=== PATIENT | female | born 1945 | race Caucasian/White ===

== ENCOUNTER 2019-04-26 06:36 | Observation (INO) ==
[2019-04-26] MEDS ORDERED: cefTRIAXone 2,000 MG in Water for inj. (sterile) 10 ML IVP ONE (06:47)
[2019-04-26] MEDS ORDERED: Azithromycin 500 MG in 0.9 % Sodium Chloride 250 ML IVPB ONE (06:47)
[2019-04-26] MEDS ORDERED: Ipratropium/Albuterol Neb 3 ML IH ONE (06:47)
[2019-04-26 07:12] LABS: Basophils % 0.4 %; Eosinophils # 0.2 K/mcL (0.0-0.6); Eosinophils % 2.1 %; Hematocrit 33.9 % (35.3-44.9); Hemoglobin 10.3 g/dL (11.5-15.4); Immature Granulocytes % 0.4 % (0-4); Lymphocytes # 0.8 K/mcL (0.6-4.6); Lymphocytes % 7.7 %; Mean Corpuscular HGB Conc 30.4 g/dL (31.6-35.5); Mean Corpuscular Hemoglobin 23.5 pg (28.0-33.3); Mean Corpuscular Volume 77.4 fL (83.0-100.0); Mean Platelet Volume 9.2 fL (9.4-12.4); Monocytes # 0.8 K/mcL (0.0-1.3); Monocytes % 7.7 %; Neutrophils # 8.7 K/mcL (1.6-8.9); Platelet Count 221 K/mcL (140-400); Red Blood Count 4.38 M/mcL (3.82-4.97); Red Cell Distribution Width 15.4 % (11.5-14.5); Segmented Neutrophils % 81.7 %; White Blood Count 10.7 K/mcL (4.3-11.1)
[2019-04-26 07:30] LABS: INR 1.2; Prothrombin Time 13.2 Seconds (9.4-12.1)
[2019-04-26 07:40] LABS: BUN/Creatinine Ratio 12 (6-26); Blood Urea Nitrogen 8 mg/dL (8-23); Calcium 8.8 mg/dL (8.6-10.3); Carbon Dioxide 28 mEq/L (23-29); Chloride 104 mEq/L (98-107); Glucose 155 mg/dL (70-105); Osmolality,Calculated 291 (280-300); Potassium 3.8 mEq/L (3.5-5.1); Sodium 140 mEq/L (136-145); eGFR For African Americans > 60 (> 60); eGFR For Non-African Americans > 60 (> 60)
[2019-04-26 07:41] LABS: Troponin I 0.03 ng/mL (< 0.04)
[2019-04-26] MEDS ORDERED: Furosemide 40 MG/4 ML VIAL IVP ONE (07:47)
[2019-04-26] MEDS ORDERED: Mag Hydrox/Al Hydrox/Simeth 30 ML UDC PO PRN (09:00)
[2019-04-26] MEDS ORDERED: Naloxone 0.4 MG/ML INJ IVP PRN (09:00)
[2019-04-26] MEDS ORDERED: methIMAzole 5 MG TABLET PO SCH (09:00)
[2019-04-26] MEDS ORDERED: Ondansetron ODT 4 MG TAB.RAPDIS SL PRN (09:00)
[2019-04-26] MEDS ORDERED: *HR* Dextrose 50 % in Water (Vial) 50 ML VIAL IVP PRN (09:02)
[2019-04-26] MEDS ORDERED: Dextrose Gel 15 GM/37.5 ML TUBE PO PRN ×2 (09:02)
[2019-04-26] MEDS ORDERED: D5% in Water 1,000 ML IVC PRN (09:02)
[2019-04-26] MEDS ORDERED: Ipratropium/Albuterol Neb 3 ML IH PRN (09:05)
[2019-04-26 10:20] LABS: Thyroid Stimulating Hormone 1.149 mcIU/mL (0.340-5.600)
[2019-04-26] MEDS: Pregabalin 75 MG CAPSULE PO SCH ×2 (10:40→20:06)
[2019-04-26] MEDS: FLUoxetine 20 MG CAPSULE PO SCH (10:40)
[2019-04-26] MEDS: Ascorbic Acid 500 MG TABLET PO SCH (10:41)
[2019-04-26] MEDS: Furosemide 20 MG/2 ML VIAL IVP SCH (10:45)
[2019-04-26] MEDS: carvediloL 6.25 MG TABLET PO SCH ×2 (10:48→17:58)
[2019-04-26] MEDS: Insulin LISPRO 300 UNITS/3 ML VIAL SQ SCH ×3 (12:41→20:01)
[2019-04-26 13:54] LABS: Estimated Average Glucose 117 mg/dl
[2019-04-26] MEDS: traZODone 50 MG TABLET PO SCH (20:06)
[2019-04-27 05:32] LABS: Hemoglobin 9.4 g/dL (11.5-15.4); Mean Corpuscular HGB Conc 30.3 g/dL (31.6-35.5); Mean Corpuscular Hemoglobin 23.6 pg (28.0-33.3); Mean Corpuscular Volume 77.9 fL (83.0-100.0); Mean Platelet Volume 9.5 fL (9.4-12.4); Platelet Count 212 K/mcL (140-400); Red Blood Count 3.98 M/mcL (3.82-4.97); Red Cell Distribution Width 15.3 % (11.5-14.5)
[2019-04-27 05:52] LABS: BUN/Creatinine Ratio 10 (6-26); Blood Urea Nitrogen 7 mg/dL (8-23); Calcium 8.5 mg/dL (8.6-10.3); Carbon Dioxide 34 mEq/L (23-29); Chloride 104 mEq/L (98-107); Glucose 107 mg/dL (70-105); Osmolality,Calculated 294 (280-300); Potassium 3.7 mEq/L (3.5-5.1); Sodium 143 mEq/L (136-145); eGFR For African Americans > 60 (> 60); eGFR For Non-African Americans > 60 (> 60)
[2019-04-27] MEDS: *HR* Enoxaparin 40 MG/0.4 ML SYRINGE SQ SCH (05:57)
[2019-04-27] MEDS: cefTRIAXone 2,000 MG in Water for inj. (sterile) 20 ML IVPB SCH (06:04)
[2019-04-27] MEDS: Azithromycin 500 MG in 0.9 % Sodium Chloride 250 ML IVPB SCH (06:04)
[2019-04-27] MEDS: carvediloL 6.25 MG TABLET PO SCH ×2 (08:48→17:06)
[2019-04-27] MEDS: Pregabalin 75 MG CAPSULE PO SCH ×2 (08:48→20:30)
[2019-04-27] MEDS: FLUoxetine 20 MG CAPSULE PO SCH (08:49)
[2019-04-27] MEDS: Furosemide 20 MG/2 ML VIAL IVP SCH (08:49)
[2019-04-27] MEDS: Ascorbic Acid 500 MG TABLET PO SCH (08:49)
[2019-04-27] MEDS: Insulin LISPRO 300 UNITS/3 ML VIAL SQ SCH ×4 (09:28→20:28)
[2019-04-27 09:59] LABS: Bilirubin,Urine Negative (Negative); Blood,Urine Negative (Negative); Clarity,Urine Clear (Clear); Color,Urine Yellow (Yellow); Glucose,Urine (UA) Normal (Normal); Ketones,Urine Negative (Negative); Leukocyte Esterase,Urine Negative (Negative); Nitrite,Urine Negative (Negative); Protein,Urine Negative (Neg-Trace); Urobilinogen,Urine Normal (Normal)
[2019-04-27 12:10] LABS: Adenovirus Not Detected (Not Detect); Bordetella Pertussis Not Detected (Not Detect); Chlamydophila pneumoniae Not Detected (Not Detect); Coronavirus 229E Not Detected (Not Detect); Coronavirus HKU1 Not Detected (Not Detect); Coronavirus NL63 Not Detected (Not Detect); Coronavirus OC43 Not Detected (Not Detect); Human Metapneumovirus Not Detected (Not Detect); Human Rhinovirus/Enterovirus Not Detected (Not Detect); Influenza A Subtype 2009 H1 Not Detected (Not Detect); Influenza B Not Detected (Not Detect); Mycoplasma pneumoniae Not Detected (Not Detect); Parainfluenza Virus 1 Not Detected (Not Detect); Parainfluenza Virus 2 Not Detected (Not Detect); Parainfluenza Virus 3 Not Detected (Not Detect); Parainfluenza Virus 4 Not Detected (Not Detect); Respiratory Syncytial Virus Not Detected (Not Detect)
[2019-04-27] MEDS: MethylPREDNISolone 40 MG/ML VIAL IVP SCH (17:06)
[2019-04-27] MEDS: traZODone 50 MG TABLET PO SCH (20:31)
[2019-04-28] MEDS: MethylPREDNISolone 40 MG/ML VIAL IVP SCH ×2 (00:08→08:48)
[2019-04-28] MEDS: cefTRIAXone 2,000 MG in Water for inj. (sterile) 20 ML IVPB SCH (06:09)
[2019-04-28] MEDS: *HR* Enoxaparin 40 MG/0.4 ML SYRINGE SQ SCH (06:10)
[2019-04-28] MEDS: Azithromycin 500 MG in 0.9 % Sodium Chloride 250 ML IVPB SCH (06:11)
[2019-04-28 06:47] LABS: Hematocrit 34.2 % (35.3-44.9); Hemoglobin 10.3 g/dL (11.5-15.4); Mean Corpuscular HGB Conc 30.1 g/dL (31.6-35.5); Mean Corpuscular Hemoglobin 23.7 pg (28.0-33.3); Mean Corpuscular Volume 78.6 fL (83.0-100.0); Mean Platelet Volume 9.7 fL (9.4-12.4); Platelet Count 216 K/mcL (140-400); Red Blood Count 4.35 M/mcL (3.82-4.97); White Blood Count 3.3 K/mcL (4.3-11.1)
[2019-04-28 07:11] LABS: BUN/Creatinine Ratio 14 (6-26); Blood Urea Nitrogen 9 mg/dL (8-23); Calcium 8.9 mg/dL (8.6-10.3); Carbon Dioxide 32 mEq/L (23-29); Chloride 102 mEq/L (98-107); Glucose 165 mg/dL (70-105); Osmolality,Calculated 294 (280-300); Potassium 3.8 mEq/L (3.5-5.1); Sodium 141 mEq/L (136-145); eGFR For African Americans > 60 (> 60); eGFR For Non-African Americans > 60 (> 60)
[2019-04-28] MEDS ORDERED: Menthol 9.1 MG LOZENGE PO PRN (07:29)
[2019-04-28 07:55] VITALS: BP 173/78
[2019-04-28] MEDS: carvediloL 6.25 MG TABLET PO SCH (08:47)
[2019-04-28] MEDS: Pregabalin 75 MG CAPSULE PO SCH (08:47)
[2019-04-28] MEDS: FLUoxetine 20 MG CAPSULE PO SCH (08:47)
[2019-04-28] MEDS: Furosemide 20 MG/2 ML VIAL IVP SCH (08:48)
[2019-04-28] MEDS: Ascorbic Acid 500 MG TABLET PO SCH (08:48)
[2019-04-28] MEDS: Insulin LISPRO 300 UNITS/3 ML VIAL SQ SCH ×2 (08:48→12:14)
[2019-04-29] MEDS ORDERED: Lisinopril 20 MG TABLET PO SCH (09:00)
== END 2019-04-28 15:11 | disposition home health service (06) ==
LOC: INPPIK 06:36 → EMEROOPIK 06:36 → INPPIK 09:25
PROVIDERS: ADMIT Family Medicine; ATTEND Family Medicine

== ENCOUNTER 2020-10-13 10:44 | Observation (INO) ==
[2020-10-13 11:09] LABS: Basophils % 0.3 %; Eosinophils # 0.1 K/mcL (0.0-0.6); Eosinophils % 0.8 %; Hematocrit 39.7 % (35.3-44.9); Hemoglobin 12.1 g/dL (11.5-15.4); Immature Granulocytes % 0.2 % (0-4); Lymphocytes # 0.6 K/mcL (0.6-4.6); Lymphocytes % 6.8 %; Mean Corpuscular HGB Conc 30.5 g/dL (31.6-35.5); Mean Corpuscular Hemoglobin 24.2 pg (28.0-33.3); Mean Corpuscular Volume 79.2 fL (83.0-100.0); Mean Platelet Volume 9.7 fL (9.4-12.4); Monocytes # 0.7 K/mcL (0.0-1.3); Monocytes % 8.2 %; Neutrophils # 7.3 K/mcL (1.6-8.9); Platelet Count 254 K/mcL (140-400); Red Blood Count 5.01 M/mcL (3.82-4.97); Red Cell Distribution Width 19.7 % (11.5-14.5); Segmented Neutrophils % 83.7 %; White Blood Count 8.7 K/mcL (4.3-11.1)
[2020-10-13 11:16] LABS: INR 1.3; Prothrombin Time 14.4 Seconds (9.4-12.1)
[2020-10-13 11:28] LABS: Alanine Aminotransferase 11 Units/L (7-52); Albumin 3.2 g/dL (3.5-5.7); Alkaline Phosphatase 101 Units/L (34-104); Aspartate Amino Transferase 16 Units/L (13-39); BUN/Creatinine Ratio 15 (6-26); Bilirubin,Total 0.9 mg/dL (0.3-1.0); Blood Urea Nitrogen 10 mg/dL (8-23); Calcium 8.7 mg/dL (8.6-10.3); Carbon Dioxide 33 mEq/L (23-29); Chloride 101 mEq/L (98-107); Globulin 3.2 g/dL (2.4-3.5); Glucose 96 mg/dL (70-105); Osmolality,Calculated 291 (280-300); Potassium 3.1 mEq/L (3.5-5.1); Sodium 141 mEq/L (136-145); Total Protein 6.4 g/dL (6.4-8.9); eGFR For African Americans > 60 (> 60); eGFR For Non-African Americans > 60 (> 60)
[2020-10-13 11:58] LABS: Bilirubin,Urine Negative (Negative); Blood,Urine Negative (Negative); Clarity,Urine Clear (Clear); Color,Urine Yellow (Yellow); Glucose,Urine (UA) Normal (Normal); Ketones,Urine Negative (Negative); Leukocyte Esterase,Urine Negative (Negative); Nitrite,Urine Negative (Negative); Protein,Urine Negative (Neg-Trace); Specific Gravity,Urine 1.015 (1.010-1.025); Urobilinogen,Urine Normal (Normal)
[2020-10-13] MEDS ORDERED: Ondansetron ODT 4 MG TAB.RAPDIS SL PRN (12:18)
[2020-10-13] MEDS ORDERED: *HR* HYDROcodone/Acet 5/325 mg TABLET PO PRN (12:18)
[2020-10-13] MEDS ORDERED: Acetaminophen 325 MG TABLET PO PRN (12:18)
[2020-10-13] MEDS ORDERED: Dextrose Gel 15 GM/37.5 ML TUBE PO PRN ×2 (12:21)
[2020-10-13] MEDS ORDERED: D5% in Water 1,000 ML IVC PRN (12:21)
[2020-10-13] MEDS ORDERED: *HR* Dextrose 50 % in Water (Vial) 50 ML VIAL IVP PRN (12:21)
[2020-10-13] MEDS: Insulin LISPRO 300 UNITS/3 ML VIAL SUBQ SCH ×2 (16:47→21:12)
[2020-10-13] MEDS: *HR* Metformin 500 MG TABLET PO SCH (17:59)
[2020-10-13] MEDS: clonazePAM 0.5 MG TABLET PO SCH (21:12)
[2020-10-13] MEDS: Pregabalin 75 MG CAPSULE PO SCH (21:12)
[2020-10-13] MEDS: traZODone 50 MG TABLET PO SCH (21:13)
[2020-10-14 07:10] LABS: Hematocrit 33.6 % (35.3-44.9); Hemoglobin 10.2 g/dL (11.5-15.4); Mean Corpuscular HGB Conc 30.4 g/dL (31.6-35.5); Mean Corpuscular Hemoglobin 23.8 pg (28.0-33.3); Mean Corpuscular Volume 78.5 fL (83.0-100.0); Mean Platelet Volume 10.2 fL (9.4-12.4); Platelet Count 254 K/mcL (140-400); Red Blood Count 4.28 M/mcL (3.82-4.97); Red Cell Distribution Width 19.4 % (11.5-14.5); White Blood Count 8.3 K/mcL (4.3-11.1)
[2020-10-14 07:26] LABS: BUN/Creatinine Ratio 16 (6-26); Blood Urea Nitrogen 10 mg/dL (8-23); Calcium 8.2 mg/dL (8.6-10.3); Carbon Dioxide 32 mEq/L (23-29); Chloride 104 mEq/L (98-107); Glucose 105 mg/dL (70-105); Osmolality,Calculated 293 (280-300); Potassium 3.7 mEq/L (3.5-5.1); Sodium 142 mEq/L (136-145); eGFR For African Americans > 60 (> 60); eGFR For Non-African Americans > 60 (> 60)
[2020-10-14] MEDS: Insulin LISPRO 300 UNITS/3 ML VIAL SUBQ SCH ×4 (10:02→20:02)
[2020-10-14] MEDS: Pregabalin 75 MG CAPSULE PO SCH ×2 (10:04→19:52)
[2020-10-14] MEDS: *HR* Metformin 500 MG TABLET PO SCH ×2 (10:04→17:12)
[2020-10-14] MEDS: lisinopriL 20 MG TABLET PO SCH (10:04)
[2020-10-14] MEDS: clonazePAM 0.5 MG TABLET PO SCH ×2 (10:04→19:52)
[2020-10-14] MEDS: BuPROPion SR (12 HR) 150 MG TABLET PO SCH (10:04)
[2020-10-14] MEDS: traZODone 50 MG TABLET PO SCH (19:52)
[2020-10-15] MEDS: Insulin LISPRO 300 UNITS/3 ML VIAL SUBQ SCH ×4 (08:34→20:43)
[2020-10-15] MEDS: clonazePAM 0.5 MG TABLET PO SCH ×2 (08:39→20:42)
[2020-10-15] MEDS: Pregabalin 75 MG CAPSULE PO SCH (08:39)
[2020-10-15] MEDS: BuPROPion SR (12 HR) 150 MG TABLET PO SCH (08:39)
[2020-10-15] MEDS: lisinopriL 20 MG TABLET PO SCH (08:40)
[2020-10-15] MEDS: *HR* Metformin 500 MG TABLET PO SCH ×2 (08:40→16:57)
[2020-10-15 09:20] LABS: Basophils % 0.4 %; Eosinophils # 0.1 K/mcL (0.0-0.6); Hematocrit 36.4 % (35.3-44.9); Hemoglobin 11.1 g/dL (11.5-15.4); Immature Granulocytes % 0.4 % (0-4); Lymphocytes # 0.8 K/mcL (0.6-4.6); Lymphocytes % 8.1 %; Mean Corpuscular HGB Conc 30.5 g/dL (31.6-35.5); Mean Corpuscular Hemoglobin 24.3 pg (28.0-33.3); Mean Corpuscular Volume 79.6 fL (83.0-100.0); Mean Platelet Volume 10.1 fL (9.4-12.4); Monocytes # 0.8 K/mcL (0.0-1.3); Monocytes % 8.8 %; Neutrophils # 7.7 K/mcL (1.6-8.9); Platelet Count 283 K/mcL (140-400); Red Blood Count 4.57 M/mcL (3.82-4.97); Red Cell Distribution Width 19.4 % (11.5-14.5); Segmented Neutrophils % 81.3 %; White Blood Count 9.4 K/mcL (4.3-11.1)
[2020-10-15 09:34] LABS: BUN/Creatinine Ratio 18 (6-26); Blood Urea Nitrogen 12 mg/dL (8-23); Calcium 8.5 mg/dL (8.6-10.3); Carbon Dioxide 31 mEq/L (23-29); Chloride 102 mEq/L (98-107); Glucose 130 mg/dL (70-105); Osmolality,Calculated 288 (280-300); Potassium 4.4 mEq/L (3.5-5.1); Sodium 138 mEq/L (136-145); eGFR For African Americans > 60 (> 60); eGFR For Non-African Americans > 60 (> 60)
[2020-10-15] MEDS: traZODone 50 MG TABLET PO SCH (20:42)
[2020-10-15] MEDS: Pregabalin 50 MG CAPSULE PO SCH (20:43)
[2020-10-16 06:59] LABS: Basophils # 0.1 K/mcL (0.0-0.2); Basophils % 0.5 %; Eosinophils # 0.1 K/mcL (0.0-0.6); Eosinophils % 0.6 %; Hematocrit 36.9 % (35.3-44.9); Immature Granulocytes % 0.4 % (0-4); Lymphocytes # 0.8 K/mcL (0.6-4.6); Lymphocytes % 7.3 %; Mean Corpuscular HGB Conc 29.8 g/dL (31.6-35.5); Mean Corpuscular Hemoglobin 23.8 pg (28.0-33.3); Mean Corpuscular Volume 79.7 fL (83.0-100.0); Mean Platelet Volume 10.1 fL (9.4-12.4); Monocytes # 0.9 K/mcL (0.0-1.3); Monocytes % 8.9 %; Neutrophils # 8.5 K/mcL (1.6-8.9); Platelet Count 319 K/mcL (140-400); Red Blood Count 4.63 M/mcL (3.82-4.97); Red Cell Distribution Width 19.3 % (11.5-14.5); Segmented Neutrophils % 82.3 %; White Blood Count 10.3 K/mcL (4.3-11.1)
[2020-10-16 07:23] LABS: BUN/Creatinine Ratio 25 (6-26); Blood Urea Nitrogen 16 mg/dL (8-23); Calcium 8.7 mg/dL (8.6-10.3); Carbon Dioxide 29 mEq/L (23-29); Chloride 102 mEq/L (98-107); Glucose 61 mg/dL (70-105); Osmolality,Calculated 287 (280-300); Potassium 4.6 mEq/L (3.5-5.1); Sodium 139 mEq/L (136-145); eGFR For African Americans > 60 (> 60); eGFR For Non-African Americans > 60 (> 60)
[2020-10-16] MEDS: Insulin LISPRO 300 UNITS/3 ML VIAL SUBQ SCH (07:42)
[2020-10-16 07:50] VITALS: BP 145/79; PULSE 101; RESP 16; TEMP 98; O2SAT 93
[2020-10-16] MEDS: Pregabalin 50 MG CAPSULE PO SCH (08:20)
[2020-10-16] MEDS: BuPROPion SR (12 HR) 150 MG TABLET PO SCH (08:21)
[2020-10-16] MEDS: clonazePAM 0.5 MG TABLET PO SCH (08:21)
[2020-10-16] MEDS: *HR* Metformin 500 MG TABLET PO SCH (08:21)
[2020-10-16] MEDS: lisinopriL 20 MG TABLET PO SCH (08:21)
== END 2020-10-16 10:17 | disposition other institution (70) ==
LOC: EMEROOPIK 10:44 → INPPIK 10:44
PROVIDERS: ADMIT Family Medicine; ATTEND Family Medicine

== ENCOUNTER 2020-10-15 10:05 | Inpatient (IN) ==
[2020-10-16] MEDS ORDERED: Ondansetron ODT 4 MG TAB.RAPDIS SL PRN (08:40)
[2020-10-16] MEDS ORDERED: Acetaminophen 325 MG TABLET PO PRN (08:40)
[2020-10-16] MEDS ORDERED: BuPROPion SR (12 HR) 150 MG TABLET PO SCH (09:00)
[2020-10-16] MEDS ORDERED: Dextrose Gel 15 GM/37.5 ML TUBE PO PRN ×2 (10:09)
[2020-10-16] MEDS ORDERED: D5% in Water 1,000 ML IVC PRN (10:09)
[2020-10-16] MEDS ORDERED: *HR* Dextrose 50 % in Water (Vial) 50 ML VIAL IVP PRN (10:09)
[2020-10-16] MEDS ORDERED: Insulin LISPRO 300 UNITS/3 ML VIAL SUBQ SCH ×2 (12:00→21:00)
[2020-10-16] MEDS: *HR* Metformin 500 MG TABLET PO SCH (16:39)
[2020-10-16] MEDS ORDERED: Insulin DETEMIR 100 UNIT/ML X5UNITS SUBQ SCH (21:00)
[2020-10-16] MEDS ORDERED: traZODone 50 MG TABLET PO SCH (21:00)
[2020-10-16] MEDS: Pregabalin 50 MG CAPSULE PO SCH (21:40)
[2020-10-16] MEDS: clonazePAM 0.5 MG TABLET PO SCH (21:40)
[2020-10-17] MEDS: lisinopriL 20 MG TABLET PO SCH (08:18)
[2020-10-17] MEDS: Pregabalin 50 MG CAPSULE PO SCH ×2 (08:18→21:02)
[2020-10-17] MEDS: BuPROPion SR (12 HR) 150 MG TABLET PO SCH (08:18)
[2020-10-17] MEDS: clonazePAM 0.5 MG TABLET PO SCH ×2 (08:18→21:03)
[2020-10-17] MEDS: *HR* Metformin 500 MG TABLET PO SCH (08:18)
[2020-10-17] MEDS: traZODone 50 MG TABLET PO SCH (21:02)
[2020-10-18 08:13] LABS: Basophils % 0.3 %; Eosinophils # 0.2 K/mcL (0.0-0.6); Eosinophils % 1.6 %; Hematocrit 36.2 % (35.3-44.9); Immature Granulocytes % 0.4 % (0-4); Lymphocytes # 0.6 K/mcL (0.6-4.6); Lymphocytes % 6.4 %; Mean Corpuscular HGB Conc 30.4 g/dL (31.6-35.5); Mean Corpuscular Hemoglobin 24.2 pg (28.0-33.3); Mean Corpuscular Volume 79.6 fL (83.0-100.0); Monocytes # 0.9 K/mcL (0.0-1.3); Monocytes % 9.2 %; Neutrophils # 7.8 K/mcL (1.6-8.9); Platelet Count 308 K/mcL (140-400); Red Blood Count 4.55 M/mcL (3.82-4.97); Red Cell Distribution Width 19.4 % (11.5-14.5); Segmented Neutrophils % 82.1 %; White Blood Count 9.5 K/mcL (4.3-11.1)
[2020-10-18 08:28] LABS: BUN/Creatinine Ratio 29 (6-26); Blood Urea Nitrogen 18 mg/dL (8-23); Calcium 8.5 mg/dL (8.6-10.3); Carbon Dioxide 30 mEq/L (23-29); Chloride 103 mEq/L (98-107); Glucose 85 mg/dL (70-105); Osmolality,Calculated 293 (280-300); Potassium 4.2 mEq/L (3.5-5.1); Sodium 141 mEq/L (136-145); eGFR For African Americans > 60 (> 60); eGFR For Non-African Americans > 60 (> 60)
[2020-10-18] MEDS: BuPROPion SR (12 HR) 150 MG TABLET PO SCH (08:34)
[2020-10-18] MEDS: lisinopriL 20 MG TABLET PO SCH (08:34)
[2020-10-18] MEDS: Pregabalin 50 MG CAPSULE PO SCH ×2 (08:34→21:15)
[2020-10-18] MEDS: clonazePAM 0.5 MG TABLET PO SCH ×2 (08:34→21:17)
[2020-10-18] MEDS: Metoprolol XL (24 HR) Succ 25 MG TAB.ER.24H PO SCH (16:54)
[2020-10-18] MEDS: traZODone 50 MG TABLET PO SCH (21:17)
[2020-10-19] MEDS: Metoprolol XL (24 HR) Succ 25 MG TAB.ER.24H PO SCH (09:56)
[2020-10-19] MEDS: Pregabalin 50 MG CAPSULE PO SCH ×2 (09:56→22:02)
[2020-10-19] MEDS: lisinopriL 20 MG TABLET PO SCH (09:56)
[2020-10-19] MEDS: BuPROPion SR (12 HR) 150 MG TABLET PO SCH (09:57)
[2020-10-19] MEDS: clonazePAM 0.5 MG TABLET PO SCH ×2 (09:57→22:02)
[2020-10-19] MEDS: *HR* Metformin 500 MG TABLET PO SCH (17:15)
[2020-10-19 21:30] VITALS: BP 122/76; PULSE 85; RESP 26; TEMP 97.9; O2SAT 100
[2020-10-19] MEDS: traZODone 50 MG TABLET PO SCH (22:02)
[2020-10-20] MEDS ORDERED: *HR* EPINEPHrine 1 MG/10 ML SYRINGE IVP ONE ×8 (05:54→06:07)
== END 2020-10-20 05:55 | disposition expired | DRG 945 ==
LOC: INPPIK 10-16 10:25
PROVIDERS: ADMIT Family Medicine; ATTEND Family Medicine